=== PATIENT | female | born 1955 ===

== ENCOUNTER 2025-01-11 06:19 | Day surgery (SDC) | payer MEDICARE, SELFPAY | END 2025-01-11 10:49 | disposition home or self-care (01) | LOC: GI 06:19 | PROVIDERS: ATTENDING PHYSICIAN Surgery | DX: Z12.11 Encounter for screening for malignant neoplasm of colon (principal); Z80.0 Family history of malignant neoplasm of digestive organs; K63.5 Polyp of colon; Z86.0101 Personal history of adenomatous and serrated colon polyps | CPT/HCPCS: 45380; 88305 ==